=== PATIENT | female | born 1950 | race Two or more races ===

== ENCOUNTER 2022-09-26 08:30 | Emergency (ER) | payer MEDICARE ==
[2022-09-26 08:37] VITALS: RESP 16
[2022-09-26] MEDS ORDERED: HYDROmorphone 1 MG/ML 1 ML SYRINGE IM STA (08:42)
--- NOTE | 2022-09-26 08:48 | ED ---
General Adult HPI - General Chief complaint: Extremity Injury, Lower Stated complaint: Left hip pain Time Seen by Provider: 09/26/22 08:31 Source: patient, RN notes reviewed Mode of arrival: EMS Limitations: physical limitation - History of Present Illness Initial comments: Pt is a 70 year old female presenting to the ER via EMS with a chief complaint of left hip pain. Patient states this has been going on for a while now and OTC pain medication is not helping. 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 She is able to walk with a walker which is normal for her. She had her right hip replaced. Denies parastheias, injury, back pain/injury, or ankle pain. Pt received toradol by EMS and she rates her pain 7/10 currently. No other complaints at this time. - Related Data Allergies Allergy/AdvReac Type Severity Reaction Status Date / Time No Known Allergies Allergy Verified 09/26/22 08:35 Review of Systems ROS Statement: Those systems with pertinent positive or pertinent negative responses have been documented in the HPI. ROS Other: All systems not noted in ROS Statement are negative. Past Medical History Past Medical History: Hypertension Additional Past Surgical History / Comment(s): right hip replacement 2016, Past Psychological History: No Psychological Hx Reported Smoking Status: Never smoker Past Alcohol Use History: None Reported Past Drug Use History: None Reported General Exam Limitations: no limitations, physical limitation General appearance: alert, in no apparent distress Neck exam: Present: normal inspection, full ROM. Absent: tenderness, meningismus, lymphadenopathy Respiratory exam: Present: normal lung sounds bilaterally. Absent: respiratory distress, wheezes, rales, rhonchi, stridor Cardiovascular Exam: Present: regular rate, normal rhythm, normal heart sounds. Absent: systolic murmur, diastolic murmur, rubs, gallop, clicks GI/Abdominal exam: Present: soft, normal bowel sounds. Absent: distended, tenderness, guarding, rebound, rigid Extremities exam: Present: normal inspection, full ROM, normal capillary refill, other (2+ left dorsalis pedis pulse. full passive ROM no pain with movement). Absent: tenderness, pedal edema, joint swelling, calf tenderness Back exam: Present: full ROM. Absent: tenderness, paraspinal tenderness, vertebral tenderness Neurological exam: Present: alert, reflexes normal. Absent: motor sensory deficit Skin exam: Present: warm, dry, intact, normal color. Absent: rash Course Vital Signs 09/26/22 08:32 Temperature 97.0 F L Pulse Rate 103 H Respiratory 16 Rate Blood Pressure 168/82 O2 Sat by Pulse 99 Oximetry Medical Decision Making - Medical Decision Making Was pt. sent in by a medical professional or institution (JOHN Osborn, WOUND CARE SPECIALIST, urgent care, hospital, or care home...) When possible be specific @ -No Did you speak to anyone other than the patient for history (EMS, parent, family, police, friend...)? What history was obtained from this source @ -EMS provided prehospital treatment Did you review nursing and triage notes (agree or disagree)? Why? @ -I reviewed and agree with nursing and triage notes Were old charts reviewed (outside hosp., previous admission, EMS record, old EKG, old radiological studies, urgent care reports/EKG's, care home records)? Report findings @ -No old charts were reviewed Differential Diagnosis (chest pain, altered mental status, abdominal pain women, abdominal pain men, vaginal bleeding, weakness, fever, dyspnea, syncope, headache, dizziness, GI bleed, back pain, seizure, CVA, palpatations, mental health, musculoskeletal)? @ -Left hip pain, left hip fracture, left hip osteoarthritis, lumbar radiculopathy, hip contusion EKG interpreted by me (3pts min.). @ -None X-rays interpreted by me (1pt min.). @ -Hip x-ray and pelvis X-ray shows moderate OA left hip CT interpreted by me (1pt min.). @ -None done U/S interpreted by me (1pt. min.). @ -None done What testing was considered but not performed or refused? (CT, X-rays, U/S, labs)? Why? @ -None What meds were considered but not given or refused? Why? @ -None Did you discuss the management of the patient with other professionals (professionals i.e. JOHN Osborn, WOUND CARE SPECIALIST, lab, RT, psych nurse, protective services social worker, firmware software verification engineer, teacher, aoc plans intelligence officer, case management coordinator)? Give summary @ -No Was smoking cessation discussed for >3mins.? @ -No Was critical care preformed (if so, how long)? @ -No Were there social determinants of health that impacted care today? How? (Homelessness, low income, unemployed, alcoholism, drug addiction, transportat ion, low edu. Level, literacy, decrease access to med. care, alf, rehab)? @ -No Was there de-escalation of care discussed even if they declined (Discuss DNR or withdrawal of care, Hospice)? DNR status @ -No What co-morbidities impacted this encounter? (DM, HTN, Smoking, COPD, CAD, Cancer, CVA, ARF, Chemo, Hep., AIDS, mental health diagnosis, sleep apnea, morbid obesity)? @ -None Was patient admitted / discharged? Hospital course, mention meds given and route, prescriptions, significant lab abnormalities, going to OR and other pertinent info. @ -Discharge patient is scheduled follow-up with orthopedics tomorrow. Patient provided pain relief patient discharged without codeine return parameters were discussed. Undiagnosed new problem with uncertain prognosis? @ -No Drug Therapy requiring intensive monitoring for toxicity (Heparin, Nitro, Insulin, Cardizem)? @ -No Were any procedures done? @ -No Diagnosis/symptom? @ -Hip pain, lumbar radiculopathy Acute, or Chronic, or Acute on Chronic? @ -Acute Uncomplicated (without systemic symptoms) or Complicated (systemic symptoms)? @ -Uncomplicated Side effects of treatment? @ -No Exacerbation, Progression, or Severe Exacerbation? @ -No Poses a threat to life or bodily function? How? (Chest pain, [place], [place], pneumonia, PE, COPD, DKA, ARF, appy, cholecystitis, CVA, Diverticulitis, Homicidal, Suicidal, threat to staff... and all critical care pts) @ -No Disposition Clinical Impression: Osteoarthritis of left hip, Lumbar radicular pain Disposition: HOME SELF-CARE Condition: Stable Instructions (If sedation given, give patient instructions): Hip Pain (ED) Additional Instructions: Please return to the Emergency Department if symptoms worsen or any other concerns. Is patient prescribed a controlled substance at d/c from ED?: No Referrals: None,Stated [Primary Care Provider] - 1-2 days Von Pozo DO [Doctor of Osteopathic Medicine] - 1-2 days Time of Disposition: 10:15
[2022-09-26] MEDS ORDERED: HYDROmorphone 1 MG/ML 1 ML SYRINGE IVP STA (09:00)
--- NOTE | 2022-09-26 09:16 | XR ---
EXAMINATION TYPE: XR AP view pelvis and 2 views left hip DATE OF EXAM: 09/26/2022 Comparison: None Clinical History: 72-year-old female pain Findings: Heterogeneous calcifications measuring up to 6.3 x 3.2 cm within the right paramedian Claudia. Multiple pelvic fluid was. Degenerative change lower lumbar spine. Moderate degenerative change left hip with axial joint space narrowing and marginal spurring. Right hip arthroplasty noted that appears well se ated. No acute fracture, subluxation, or dislocation. Impression: 1. Uncomplicated right hip total arthroplasty. 2. Moderate left hip OA. No acute osseous abnormality seen. 3. A 6.3 x 3.2 cm area of heterogeneous calcification in the right hemipelvis. Possible calcified [place] fibroids. Nonemergent pelvic ultrasound evaluation recommended. If fibroids are not seen, CT may be needed to further evaluate the etiology.
[2022-09-26] MEDS ORDERED: ONDANSETRON ODT 4 MG TAB PO STA (10:10)
[2022-09-26] MEDS ORDERED: ACET/COD 300 MG/30 MG STARTER PACK 6 TAB BTL PO STA (10:15)
[2022-09-26 10:34] VITALS: BP 147/86; PULSE 87; TEMP 97.4
== END 2022-09-26 10:44 | disposition home or self-care (01) ==
LOC: EC 08:30
DX: M16.0 Bilateral primary osteoarthritis of hip (principal); M54.16 Radiculopathy, lumbar region; I10 Essential (primary) hypertension
CPT/HCPCS: 99283 ×2; 96374 ×2; 96375; 73502; J1170

== ENCOUNTER 2022-10-01 02:05 | Emergency (ER) | payer MEDICARE ==
[2022-10-01 02:10] VITALS: TEMP 98
[2022-10-01] MEDS ORDERED: SODIUM CHLORIDE 0.9% 500 ML 500 ML IV STA (02:25)
[2022-10-01] MEDS ORDERED: HYDROmorphone 1 MG/ML 1 ML SYRINGE IVP STA (02:25)
[2022-10-01] MEDS ORDERED: DEXAMETHASONE SOD PHOSPHATE 10 MG/ML 1 ML VIAL IVP STA (02:25)
[2022-10-01] MEDS ORDERED: KETOROLAC 15 MG/ML 1 ML VIAL IVP STA (02:25)
--- NOTE | 2022-10-01 02:27 | ED ---
Back Pain HPI - General Chief Complaint: Back Pain/Injury Stated Complaint: Leg Pain Time Seen by Provider: 10/01/22 02:11 Source: EMS, RN notes reviewed, old records reviewed Limitations: no limitations - History of Present Illness Initial Comments: This is a 72-year-old female to the ER for evaluation today.of back pain severe. Back pain back pain down left leg and severe sciatica with recent left hip pain. Patient is being seen and has been seen by orthopedics secondary to hip replacement. Patient has no new trauma and has had well controlled pain at home. No loss of bowel or bladder, patient is able to ambulate MD Complaint: back pain -: days(s) Similar Symptoms Previously: Yes Place: home Severity: severe Severity scale (1-10): 9 Quality: sharp Consistency: constant Improves With: none Worsens With: none Context: bending, fall Associated Symptoms: denies other symptoms Treatments Prior to Arrival: other (0) - Related Data Allergies Allergy/AdvReac Type Severity Reaction Status Date / Time No Known Allergies Allergy Verified 09/26/22 08:35 Review of Systems ROS Statement: Those systems with pertinent positive or pertinent negative responses have been documented in the HPI. ROS Other: All systems not noted in ROS Statement are negative. Past Medical History Past Medical History: Hypertension History of Any Multi-Drug Resistant Organisms: None Reported Past Surgical History: Cholecystectomy Additional Past Surgical History / Comment(s): right hip replacement 2016, Past Psychological History: No Psychological Hx Reported Smoking Status: Never smoker Past Alcohol Use History: None Reported Past Drug Use History: None Reported General Exam Limitations: no limitations General appearance: alert, in no apparent distress Head exam: Present: atraumatic, normocephalic, normal inspection Eye exam: Present: normal appearance, PERRL, EOMI. Absent: scleral icterus, conjunctival injection, periorbital swelling ENT exam: Present: normal exam, mucous membranes moist Neck exam: Present: normal inspection. Absent: tenderness, meningismus, lymphadenopathy Respiratory exam: Present: normal lung sounds bilaterally. Absent: respiratory distress, wheezes, rales, rhonchi, stridor Cardiovascular Exam: Present: regular rate, normal rhythm, normal heart sounds. Absent: systolic murmur, diastolic murmur, rubs, gallop, clicks GI/Abdominal exam: Present: soft, normal bowel sounds. Absent: distended, tenderness, guarding, rebound, rigid Extremities exam: Present: normal inspection, full ROM, normal capillary refill. Absent: tenderness, pedal edema, joint swelling, calf tenderness Back exam: Present: normal inspection Neurological exam: Present: alert, oriented X3, CN II-XII intact Psychiatric exam: Present: normal affect, normal mood Skin exam: Present: warm, dry, intact, normal color. Absent: rash Course Vital Signs 10/01/22 10/01/22 10/01/22 02:06 04:10 06:30 Temperature 98 F 98 F Pulse Rate 86 82 85 Respiratory 16 16 18 Rate Blood Pressure 189/108 168/88 162/80 O2 Sat by Pulse 99 98 97 Oximetry - Reevaluation(s) Reevaluation #1: 10/01/22 02:50 medical record is reviewed Reevaluation #2: Patient symptoms are improved Reevaluation #3: Patient informed results and questions answered Reevaluation #4: 10/01/22 02:50 Was pt. sent in by a medical professional or institution? @ -no Did you speak to anyone other than the patient for history? @ -no Did you review nursing and triage notes? @ -agree Were old charts reviewed? @ -no Differential Diagnosis? @ -prior EKG interpreted by me (3pts min.)? @ -no X-rays interpreted by me (1pt min.)? @ -no CT interpreted by me (1pt min.)? @ -yes U/S interpreted by me (1pt. min.)? @ -no What testing was considered but not performed? (CT, X-rays, U/S, labs)? Why? @ -no What meds were considered but not given? Why? @ -no Did you discuss the management of the patient with other professionals? @ -no Did you reconcile home meds? @ -no Was smoking cessation discussed for >3mins.? @ -no Was critical care preformed (if so, how long)? @ -no Were there social determinants of health that impacted care today? How? (Homelessness, low income, unemployed, alcoholism, drug addiction, transportation, low edu. Level, literacy, decrease access to med. care, senior living, rehab)? @ -no Was there de-escalation of care discussed even if they declined? (Discuss DNR or withdrawal of care, Hospice)? @ -no What co-morbidities impacted this encounter? (DM, HTN, Smoking, COPD, CAD, Cancer, CVA, Hep., AIDS, mental health diagnosis, sleep apnea, morbid obesity)? @ -none Was patient admitted / discharged? @ -72 female with acute on chronic back pain, lumbar radiculopathy. Symptoms well controlled here in the ER patient feels well can be discharged home able ambulatory without significant difficulty no neurological deficits Discharged Undiagnosed new problem with uncertain prognosis? @ -no Drug Therapy requiring intensive monitoring for toxicity (Heparin, Nitro, Insulin, Cardizem)? @ -no Were any procedures done? @ -no Diagnosis/symptom? @ -Acute on chronic back pain and lumbar radiculopathy Acute, or Chronic, or Acute on Chronic? @ -no Uncomplicated (without systemic symptoms) or Complicated (systemic symptoms)? @ -uncomplicated Side effects of treatment? @ -no Exacerbation, Progression, or Severe Exacerbation] @ -no Poses a threat to life or bodily function? @ -no Reevaluation #5: 10/01/22 02:50 Differential Back Pain: Strain, zoster, cauda equina syndrome, epidural abscess, vertebral osteomyelitis, discitis, fracture, subluxation, disc herniation, DJD, spinal stenosis, dissection, AAA, pancreatitis, peptic ulcer disease, pyelonephritis, kidney stone, this is not meant to be an all-inclusive list. Medical Decision Making - Medical Decision Making 72 female with acute on chronic back pain, lumbar radiculopathy. Symptoms well controlled here in the ER patient feels well can be discharged home able ambulatory without significant difficulty no neurological deficits - Radiology Data Radiology results: report reviewed (CT shows no significant LS-spine abnormality), image reviewed Disposition Clinical Impression: Lumbar radiculopathy Disposition: HOME SELF-CARE Condition: Good Instructions (If sedation given, give patient instructions): Acute Low Back Pain (ED) Is patient prescribed a controlled substance at d/c from ED?: No Referrals: None,Stated [Primary Care Provider] - 1-2 days Time of Disposition: 06:00
--- NOTE | 2022-10-01 05:37 | CT ---
EXAMINATION TYPE: CT abdomen pelvis wo con DATE OF EXAM: 10/01/2022 HISTORY: Lumbosacral pain into legs CT DLP: 768.4 mGycm. Automated Exposure Control for Dose Reduction was Utilized. TECHNIQUE: CT scan of the abdomen and pelvis is performed without oral or IV contrast. COMPARISON: MRI lumbar spine 2014 FINDINGS: Within the limitations of a non-contrast study, the following observations are made. LUNG BASES: Calcification at level of the mitral valve is present. LIVER/GB: Cholecystectomy clips are seen. PANCREAS: No significant abnormality is seen. SPLEEN: No significant abnormality is seen. ADRENALS: No significant abnormality is seen. KIDNEYS: No significant abnormality is seen. BOWEL: Hyperdense or stone filled appendix is normal in size. No surrounding fluid or fat stranding n oted. No abnormal small or large bowel dilatation. GENITAL ORGANS: Slightly retroverted uterus. There is large calcified exophytic right pelvic 4.9 x 4. 7 cm lesion axial image 103 favoring pedunculated or subserosal fibroid. LYMPH NODES: No greater than 1cm abdominal or pelvic lymph nodes are appreciated. OSSEOUS STRUCTURES: There is S-shaped scoliosis. There is grade 1 anterolisthesis L4 on L5. There is multilevel vacuum disc phenomenon and disc space narrowing in the mid to lower lumbar spine. Multilev el facet arthropathy in the lower lumbar spine is seen. Metallic artifact from right hip arthroplasty causes streak artifact limiting evaluation of pelvic structures. OTHER: Surgical clips in the left mid abdominal mesentery are seen. IMPRESSION: Scoliosis and spondylolisthesis and multilevel degenerative changes in the lower lumbar s pine have progressed from 2014 MRI. No acute findings are evident.
[2022-10-01] MEDS ORDERED: ACET/COD 300 MG/30 MG STARTER PACK 6 TAB BTL PO STA (06:05)
[2022-10-01] MEDS ORDERED: Acetaminophen-Codeine 300-30mg TAB PO STA (06:05)
[2022-10-01 06:41] VITALS: BP 162/80; PULSE 85; RESP 18
== END 2022-10-01 06:30 | disposition home or self-care (01) ==
LOC: EC 02:05
DX: M54.16 Radiculopathy, lumbar region (principal); I10 Essential (primary) hypertension
CPT/HCPCS: 74176; 99284; 96374; 96375 ×2; J1100; J1170; J1885